=== PATIENT | male | born 2000 | race Caucasian/White ===

== ENCOUNTER 2020-04-11 18:27 | Emergency (ER) | payer MEDICAID, SELFPAY ==
[2020-04-11 18:35] VITALS: BP 143/79; PULSE 83; RESP 18; TEMP 36.7; O2SAT 99; BMI 25.8
[2020-04-11 18:45] VITALS: BP 143/79; PULSE 83; RESP 18; TEMP 36.6; O2SAT 99; BMI 25.9
--- NOTE | 2020-04-11 18:49 | XR_ITS ---
PROCEDURE: XR HAND RT MIN 3V CLINICAL INDICATION: INJURY Posttraumatic pain COMPARISON: No exams were available for comparison FINDINGS: There is radial angulation of the distal aspect of the 5th metacarpal with some cortical thickening consistent with an old fracture. No acute fracture or dislocation is evident. Other findings:None. IMPRESSION: Old 5th metacarpal fracture, no acute finding Dictated by: Ken Khan MD 04/11/2020 20:49 Electronically signed by Ken Khan MD in [place] 04/11/2020 20:49
--- NOTE | 2020-04-11 18:51 | PC.NURSE ---
NOTIFIED RAD OF HAND XRAY
--- NOTE | 2020-04-11 18:54 | HMH.EDUTC ---
[facility] [place] Impression: Right hand pain Injury of right hand Qualifiers: Encounter type: sequela Qualified Code(s): S69.91XS - Unspecified injury of right wrist, hand and finger(s), sequela Disposition: Home, Self-Care Condition on Discharge: Good Instructions: DI for Hand Pain Additional Instructions: Rest the extremity, apply ice for 15 minutes as tolerated three or four times per day, Elevate the extremity as tolerated while you are resting. Take ibuprofen for pain. Follow up with Dr. Dunlap. I put in a referral but you need to call his office and schedule an appointment. Follow up with your regular doctor. GO TO THE ER FOR ANY WORSENING SYMPTOMS Referrals: Provider,Maxine, [Primary Care Provider] - Fly Dunlap MD [Staff Physician] - Forms: Work/School Release Time of Disposition: 19:58 Medical Decision Making - Medical Records Medical records reviewed: No: I reviewed the patient's medical records. - Jimy Inquiry Pt receiving controlled substance: No Vital Signs: 04/11/20 18:35 04/11/20 18:45 Temperature 98.0 F 98 F Temperature Source Oral Oral Pulse Rate [Left Radial] 83 83 Respiratory Rate 18 18 Blood Pressure [Left Arm] 143/79 H 143/79 H Blood Pressure Mean [Left Arm] 100 100 Blood Pressure Source [Left Arm] Automatic Cuff Automatic Cuff Blood Pressure Position [Left Arm] Sitting Sitting 02 Sat by Pulse Oximetry 99 99 Oxygen Delivery Method Room Air Room Air Orders (Tests/Meds): ORDERS Category Date Time Status XR hand RT min 3V Stat Exams 04/11/20 18:49 Taken - Radiology Data #1 Image(s): Hand Image Reviewed: Yes I reviewed the patient's radiology image Preliminary Findings: No Fracture Seen Medical Decision Narrative: I called and discussed the x-ray with Dr. Dunlap (orthopedics). It was felt by Dr. Dunlap that there is probably an old healed fracture, but go ahead and splint the hand and refer him to orthopedics. [facility] [place] - General Stated complaint: AO 04/11 @ 1800 injury to right hand Time Seen by Provider: 04/11/20 18:54 Mode of Arrival: Ambulatory Source of Information: Patient Limitations: No Limitations Description of Symptoms (Recalled from Triage Doc. by RN): PT C/O RT HAND PAIN HEENT Symptoms (Recalled from RN notes): No Resp Symptoms (Recalled from RN notes): No Skin Symptoms (Recalled from RN notes): No MS Symptoms (Recalled from RN notes): Yes (RT HAND INJURY) Functional Status (Recalled from RN notes): N/A - History of Present Illness Provider Complaint: He states that earlier today he got mad and punched a refrigerator. Since then he has had right hand pain. The pain is worse at the base of his 4th and 5th fingers. - Related Data Allergies Allergy/AdvReac Type Severity Reaction Status Date / Time INGREDIENT: NO KNOWN - NO Allergy Unknown Uncoded 11/12/17 15:08 KNOWN DRUG ALLERGY - Worker's Comp Is this a Worker's Comp case?: No [facility] History - Hepatitis A Screen Drug use history?: No High risk sexual behaviors?: No History of sexually transmitted infection?: No Currently employed?: No Childcare worker?: No Do you have indoor plumbing?: Yes Do you have electricity?: Yes Attestation statement:: This patient has been screened for Hepatitis A risk factors. I have reviewed the patient's past medical history: Yes Medical History: Denies:: Diabetes Mellitus Type 1, Diabetes Mellitus Type 2 - Social History Smoking Status: Never smoker Alcohol Intake: never Occupational Status: other ROS Obtained: Yes All systems reviewed & no additional complaints - Constitutional Constitutional: Denies chills, Denies fever(s), Denies poor appetite, Denies malaise - Eyes Eyes: Denies eye discharge - Cardiovascular Cardiovascular: Denies chest pain - Respiratory Respiratory: No chest congestion, No cough - Gastrointestinal Gastrointestingal: Denies: nausea, vomiting - Musculoskeletal Mus
[2020-04-11 20:20] VITALS: BP 143/79; PULSE 83; RESP 18; TEMP 36.6; O2SAT 99
== END 2020-04-11 20:20 | disposition home or self-care (01) ==
PROVIDERS: Emergency Provider Nurse Practitioner Family
DX: S69.91XA Unspecified injury of right wrist, hand and finger(s), initial encounter (principal); W22.8XXA Striking against or struck by other objects, initial encounter
CPT/HCPCS: 29125; 73130; 99203

== ENCOUNTER → 2020-04-20 09:37 | Outpatient (CLI) | payer SELFPAY ==
--- NOTE | 2020-04-20 09:52 | XR_ITS ---
PROCEDURE: XR HAND RT MIN 3V CLINICAL INDICATION: evaluate for RT hand fracture COMPARISON: XR HAND RT MIN 3V from 04/11/2020 FINDINGS: There is an old 5th metacarpal fracture once again noted. No acute fracture or dislocation evident. The joint spaces are well-preserved. No significant degenerative/arthritic changes. No erosive changes evident. Other findings:None. IMPRESSION: No change with no acute finding. Old 5th metacarpal fracture Dictated by: Ken Khan MD 04/20/2020 16:11 Electronically signed by Ken Khan MD in [place] 04/20/2020 16:11
== END ==
PROVIDERS: PCP Internal Medicine Adolescent Medicine; Visit Provider Orthopaedic Surgery
DX: S69.91XA Unspecified injury of right wrist, hand and finger(s), initial encounter (principal)
CPT/HCPCS: 73130

== ENCOUNTER 2020-10-03 09:23 | Emergency (ER) | payer OTHER, SELFPAY ==
[2020-10-03 09:55] VITALS: BP 137/73; PULSE 80; RESP 20; TEMP 36.8; O2SAT 99; BMI 25.8
--- NOTE | 2020-10-03 10:08 | HMH.EDUTC ---
[facility] [place]ression: Conjunctivitis Qualifiers: Conjunctivitis type: unspecified Laterality: right Qualified Code(s): H10.9 - Unspecified conjunctivitis Disposition: Home, Self-Care Condition on Discharge: Good Instructions: Conjunctivitis, DI for Conjunctivitis, Ofloxacin Ophthalmic Additional Instructions: Use drops as prescribed FOllow up immediately with Dr Mayorga at [facility] if any worsening of symptoms or pain Follow up immediately if no improvement with EYE Doctor Return if needed Straight to ER if any life threatening symptoms Wash hands well before and after application of drops Prescriptions: Ofloxacin [Ocuflox 0.3% OPHTH drops 5mL] 2 drops OP QID 5 Days #1 bottle Transmission Status: Pending to [facility] Referrals: PCP,No [Primary Care Provider] - As needed [facility] [Other] Forms: Work/School Release Medical Decision Making - Jimy Inquiry Pt receiving controlled substance: No Jimy was queried for this patient: No Vital Signs: 10/03/20 09:55 Temperature 98.2 F Temperature Source Oral Pulse Rate [Right Brachial] 80 Respiratory Rate 20 Blood Pressure [Right Arm] 137/73 Blood Pressure Mean [Right Arm] 94 Blood Pressure Source [Right Arm] Automatic Cuff Blood Pressure Position [Right Arm] Sitting 02 Sat by Pulse Oximetry 99 Oxygen Delivery Method Room Air Medical Decision Narrative: Discussed eye exam with eye box due to patient reporting that he gets dust in eyes at work and patient declined denies known FB in eye and denies injury [facility] [place] - General Stated complaint: rigt eye pain Time Seen by Provider: 10/03/20 10:08 Mode of Arrival: Ambulatory Source of Information: Patient Limitations: No Limitations Description of Symptoms (Recalled from Triage Doc. by RN): PATIENT C/O RIGHT EYE PAIN AND REDNESS OVER THE WEEKEND. HE REPORTS HE THINKS SOMETHING MAY HAVE GOTTEN IN HIS EYE AT WORK, BUT IS UNSURE WHAT IS WAS. 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 States that he doesnt recall getting anything in his eye and denies feeling of FB but states that for the last couple of days he has been having drainage, redness and mild swelling around his upper lid States that this morning when he woke up it was matted together and he went to work and they sent him here to get checked because they thought he may have [facility] - Related Data Previous Rx's Medication Instructions Recorded Ofloxacin [Ocuflox 0.3% OPHTH 2 drops OP QID 5 Days #1 bottle 10/03/20 drops 5mL] Allergies Allergy/AdvReac Type Severity Reaction Status Date / Time No Known Allergies Allergy Verified 10/03/20 10:05 - Worker's Comp Is this a Worker's Comp case?: No [facility] History - Hepatitis A Screen Drug use history?: No High risk sexual behaviors?: No History of sexually transmitted infection?: No Currently employed?: No Childcare worker?: No Do you have indoor plumbing?: Yes Do you have electricity?: Yes Attestation statement:: This patient has been screened for Hepatitis A risk factors. I have reviewed the patient's past medical history: Yes Medical History: Denies:: Diabetes Mellitus Type 1, Diabetes Mellitus Type 2 Other Surgeries: Yes: No Previous Surgery - Social History Smoking Status: Never smoker Alcohol Intake: never Occupational Status: other Family Hx:: No significant family history ROS Obtained: Yes All systems reviewed & no additional complaints, Yes Systems reviewed as appropriate & no additional complaints - Constitutional Constitutional: Reports system reviewed and no additional complaints, except as docu - Eyes Eyes: Teja
[2020-10-03 10:38] VITALS: BP 137/73; PULSE 80; RESP 20; TEMP 36.8; O2SAT 99
== END 2020-10-03 10:42 | disposition home or self-care (01) ==
PROVIDERS: Emergency Provider Nurse Practitioner
DX: H10.31 Unspecified acute conjunctivitis, right eye (principal)
CPT/HCPCS: 99201

== ENCOUNTER 2021-04-30 03:28 | Emergency (ER) | payer OTHER, SELFPAY ==
[2021-04-30 03:30] VITALS: BP 117/74; PULSE 72; RESP 16; TEMP 36.4; O2SAT 98; BMI 26.6
--- NOTE | 2021-04-30 03:52 | XR_ITS ---
PROCEDURE INFORMATION: Exam: XR Left Hand Exam date and time: 04/30/2021 3:52 AM Age: 20 years old Clinical indication: Injury or trauma; Other: Laceration; Left; Patient HX: Lac to index finger and thumb, best images TECHNIQUE: Imaging protocol: XR Left hand. Views: 3 or more views. COMPARISON: No relevant prior studies available. FINDINGS: Bones/joints: Soft tissue swelling of the index finger is seen without evidence of a radiopaque foreign body. Osseous structures appear intact. Soft tissues: Normal. IMPRESSION: Soft tissue swelling of the index finger is seen without evidence of a radiopaque foreign body. Osseous structures appear intact.
[2021-04-30 04:45] VITALS: BP 110/57; PULSE 52; O2SAT 97
--- NOTE | 2021-04-30 05:35 | HMH.EDPFEV ---
ED Disposition Clinical Impression: Finger laceration Qualifiers: Encounter type: initial encounter Finger: index finger Damage to nail status: unspecified Foreign body presence: without foreign body Laterality: left Qualified Code(s): S61.211A - Laceration without foreign body of left index finger without damage to nail, initial encounter Disposition: Home, Self-Care Condition on Discharge: Good Instructions: DI for Laceration Repair Additional Instructions: sutures out 10-12 days and recheck if any problems Prescriptions: cephALEXin [cephALEXin 500mg capsule*] 500 mg PO TID #30 cap Transmission Status: Pending to [facility] Referrals: Provider,Referral, [Primary Care Provider] - - Critical Care Critical Care Time: No Attestation: On 04/30/21, the high probability of a clinically significant, sudden or life threatening deterioration of the following system(s) required my full and direct attention, intervention and personal management. The time I documented below is in addition to time spent performing reported procedures but includes the following listed in this critical care notation. Medical Decision Making - Medical Records Medical records reviewed: Yes: I reviewed the patient's medical records. - Jimy Inquiry Pt receiving controlled substance: No Vital Signs: 04/30/21 03:30 04/30/21 04:45 Temperature 97.6 F Temperature Source Oral Pulse Rate 52 L Pulse Rate [Right Radial] 72 Respiratory Rate 16 Blood Pressure 110/57 L Blood Pressure [Right Arm] 117/74 Blood Pressure Mean [Right Arm] 88 Blood Pressure Source [Right Arm] Automatic Cuff Blood Pressure Position [Right Arm] Supine 02 Sat by Pulse Oximetry 98 97 Oxygen Delivery Method Room Air Orders (Tests/Meds): ED MEDICATIONS Discontinued Medications Generic Name Dose Route Start Last Admin Trade Name Freq PRN Reason Stop Dose Admin Tetanus/Reduced Diphtheria/Acell Pertussis 0.5 ml 04/30/21 03:53 04/30/21 04:06 Tet/Diphth/Pert-Adult 0.5ml Syringe IM 04/30/21 03:54 0.5 ml .ONCE ONE Administration - Radiology Data #1 Image(s): Hand Image Reviewed: Yes I reviewed the patient's radiology image Preliminary Findings: No Fracture Seen Pediatric Fever HPI - General Chief Complaint: Wound/Laceration Stated Complaint: AO 04/30/21 0230 laceration left hand Time Seen by Provider: 04/30/21 04:00 Mode of Arrival: Ambulatory Source of Information: Patient, Relative, Medical Record Limitations: No Limitations Description of Symptoms (Recalled from ER Triage Doc. by RN): Pt reports lac to left hand on glass when he was trying to break a tobacco stick on the ground. Pt has small lacs to left thumb and left index finger. - History of Present Illness HPI narrative: lac lt hand tonight - no def hx 0f how - pt intox - but able to move finger and no other injury noted MD complaint: other (lac lt index finger ) Onset (ago): hour(s) Hydration status: tolerating fluids Activity level at home: normal Treatments prior to arrival: none - Related Data Immunizations UTD: no Previous Rx's Medication Instructions Recorded cephALEXin [cephALEXin 500mg 500 mg PO TID #30 cap 04/30/21 capsule*] Allergies Allergy/AdvReac Type Severity Reaction Status Date / Time No Known Allergies Allergy Verified 10/03/20 10:05 Pediatric Past Medical History - Past Medical History Source: obtained from family ROS Obtained: Yes All systems reviewed & no additional complaints - Constitutional Constitutional: Denies fever(s) - Eyes Eyes: Denies change in vision - ENT Ears, Nose, Mouth, and Throat: Denies sore throat - Cardiovascular Cardiovascular: Denies chest pain - Gastrointestinal Gastrointestingal: Denies: abdominal pain - Genitourinary Male Genitourinary: Denies hematuria - Musculoskeletal Musculoskeletal: Denies joint pain - Integumentary/Breasts Skin/Breast: Reports as per
[2021-04-30 05:50] VITALS: BP 114/78; PULSE 88; RESP 20; TEMP 36.6; O2SAT 98
== END 2021-04-30 05:52 | disposition home or self-care (01) ==
PROVIDERS: Emergency Provider Emergency Medicine
DX: S61.211A Laceration without foreign body of left index finger without damage to nail, initial encounter (principal); W25.XXXA Contact with sharp glass, initial encounter; Y92.009 Unspecified place in unspecified non-institutional (private) residence as the place of occurrence of the external cause; Z23 Encounter for immunization
CPT/HCPCS: 12001; 73130; 90471; 90715; 99282

== ENCOUNTER 2021-05-01 08:15 | Emergency (ER) | payer OTHER, SELFPAY ==
[2021-05-01 08:16] VITALS: BP 126/75; PULSE 85; RESP 16; TEMP 36.7; O2SAT 98; BMI 25.8
--- NOTE | 2021-05-01 08:39 | XR_ITS ---
PROCEDURE: XR ELBOW LT MIN 3V CLINICAL INDICATION: Possible FB COMPARISON: No exams were available for comparison FINDINGS: No fracture or dislocation. No lytic or blastic change. There is normal mineralization. The joint spaces are well-preserved. No significant degenerative/arthritic changes. No erosive changes evident. Other findings:No radiopaque foreign body apparent IMPRESSION: No acute findings. Dictated by: Ken Khan MD 05/01/2021 09:46 Ken Khan MD in [place] 05/01/2021 09:46
--- NOTE | 2021-05-01 08:49 | HMH.EDSKAF ---
ED Disposition Clinical Impression: Abscess of arm, left, Cellulitis of left upper extremity Disposition: Home, Self-Care Condition on Discharge: Good Instructions: Cellulitis Prescriptions: Sulfamethoxazole/Trimethoprim [Bactrim DS tablet] 1 each PO BID 10 Days #20 tab Transmission Status: Pending to [facility] cephALEXin [Cephalexin 500mg Tab] 500 mg PO QID 10 Days #40 tab Transmission Status: Pending to [facility] Referrals: Provider,Referral, [Primary Care Provider] - - Critical Care Critical Care Time: No Attestation: On 05/01/21, the high probability of a clinically significant, sudden or life threatening deterioration of the following system(s) required my full and direct attention, intervention and personal management. The time I documented below is in addition to time spent performing reported procedures but includes the following listed in this critical care notation. Medical Decision Making - Medical Records Medical records reviewed: Yes: I reviewed the patient's medical records. - Jimy Inquiry Pt receiving controlled substance: No Vital Signs: 05/01/21 08:16 Temperature 98.1 F Temperature Source Oral Pulse Rate [Left] 85 Respiratory Rate 16 Blood Pressure [Right Arm] 126/75 Blood Pressure Mean [Right Arm] 92 Blood Pressure Source [Right Arm] Automatic Cuff 02 Sat by Pulse Oximetry 98 Oxygen Delivery Method Room Air Orders (Tests/Meds): ED MEDICATIONS Discontinued Medications Generic Name Dose Route Start Last Admin Trade Name Ivánq PRN Reason Stop Dose Admin Ceftriaxone Sodium 1 gm 05/01/21 08:39 05/01/21 09:12 Ceftriaxone 1gm Vial IM 05/01/21 08:40 1 gm ONCE ONE Administration Protocol Ibuprofen 800 mg 05/01/21 08:39 05/01/21 08:53 Ibuprofen 400 Mg Tablet PO 05/01/21 08:40 800 mg ONCE ONE Administration Lidocaine HCl 0 ml 05/01/21 08:39 Lidocaine 1% 5ml Pf Vial IM 05/01/21 08:40 ONCE ONE ORDERS Category Date Time Status Elbow XR left mininum 3 views [XR elbow LT min 3V] Stat Exams 05/01/21 08:39 Taken - Radiology Data #1 Image(s): Elbow Image Reviewed: Yes I reviewed the patient's radiology results, Yes I reviewed the patient's radiology image No obvious fracture or dislocation. No radiopaque foreign body. - Reevaluation(s) Time: 09:23 Reevaluation #1: On reevaluation, patient is feeling much better. Patient be discharged with short course antibiotics. He is to follow-up with PCP or return the emergency department for repeat wound evaluation in 48 hours. Given strict return precautions. Verbalized understanding. Medical Decision Narrative: 20-year-old male presented to the emergency department with an abscess in the left elbow. The patient has been self traumatizing it in order to express purulent material. Patient is afebrile. No evidence of sepsis. Patient be given first dose of antibiotics in the emergency department. X-ray will be obtained for foreign body. Skin/Abscess/FB HPI - General Chief complaint: Skin/Abscess/Foreign Body Stated complaint: redness and pain on Lt arm Time Seen by Provider: 05/01/21 08:20 Mode of Arrival: Ambulatory Limitations: No Limitations Description of Symptoms (Recalled from ER Triage Doc. by RN): patient with scab to left elbow that has become infected with cellulitis up arm. patient complains of left armpit tenderness. - History of Present Illness HPI narrative: 20-year-old male presented to the emergency department with some left elbow pain and swelling. The patient states that he has had a small abscess in the area for the last 5 days or so. Patient states that he has been squeezing it and relieving some purulent material. He states that yesterday started noticing some redness streaking up his arm. It was painful in nature. Patient states that it goes from his armpit down to his elbow. He denies any direct trauma. Patient denies an
[2021-05-01 09:25] VITALS: BP 134/83; PULSE 85; RESP 20; O2SAT 99
[2021-05-01 09:36] VITALS: BP 138/80; PULSE 84; RESP 16; TEMP 36.7; O2SAT 100
== END 2021-05-01 09:41 | disposition home or self-care (01) ==
PROVIDERS: Emergency Provider Emergency Medicine
DX: L02.414 Cutaneous abscess of left upper limb (principal)
CPT/HCPCS: 73080; 96372; 99282

== ENCOUNTER 2021-10-17 10:43 | Emergency (ER) | payer OTHER, SELFPAY ==
[2021-10-17 11:51] VITALS: BP 124/69; PULSE 89; RESP 19; TEMP 36.8; O2SAT 99; BMI 20.7
--- NOTE | 2021-10-17 12:17 | HMH.EDUTC ---
[facility] [place] Clinical Impression: Strep throat Disposition: Home, Self-Care Condition on Discharge: Good Instructions: DI for COVID-19 (Suspected or Confirmed ), Preventing the Spread of Coronavirus Discharge Instructions, DI for Fever (Symptom) -- Adult, DI for Strep Throat, Strep Throat Additional Instructions: *Monitor Temp, Over the counter Motrin or Tylenol as directed/as needed Tylenol every 4 hours and Motrin every 6 hours (as long as your family doctor has told you that you can take it) for fever or pain. and straight to ER if unable to lower temp less than 101.0 after medication given *Warm salt water gargles may help to soothe the throat *Throat Lozenges *Warm fluids like tea with honey may help to soothe the throat *Sleep elevated *Humidifier/Vaporizer *Flonase 2 sprays in each nostril daily but be aware that it may take 2-3 days before you notice improvement *Bromfed may cause drowsiness. Know how it effects you (your child) before driving, caring for small child, or sending your child to school. Not other antihistamines/allergy medications while taking bromfed Your throat swab was sent for culture. Those results are typically sent to your primary care. Be sure to follow up in 2-3 days with your family doctor/primary care physician if no improvement so they can review those result and treat if necessary. If you don?t have a primary care doctor, I recommend you get one but in the mean time, you will have to return to a walk in clinic Follow up IMMEDIATELY for new or worsening symptoms or no Noticeable improvement over the next 48-72 hours. 911 for difficulty breathing or swallowing You were tested for today for COVID19 your test result should be back in the next 24-48 hours, you may check your results on the [facility] My Health Portal you was given a handout on how to access the portal if you have issues there is a number you can call to get it You was given a handout with instructions for Self Quarantine and Self isolation for while you wait on test results and what to do if they are positive If you are positive the Health Dept will be contacting you also Make sure to take your Vitamins Vit. C Vit D and Zinc if you can take them Prescriptions: methylPREDNISolone [Medrol 4mg tab] 4 mg PO DIRECTED #21 tab Transmission Status: Pending to [facility] Cefdinir [Omnicef 300mg Capsule] 300 mg PO BID #20 cap Transmission Status: [facility] to [facility] Referrals: Provider,Referral, [Primary Care Provider] - Forms: Work/School Release Time of Disposition: 12:27 Medical Decision Making - Jimy Inquiry Pt receiving controlled substance: No Jimy was queried for this patient: No Vital Signs: 10/17/21 11:51 Temperature 98.3 F Temperature Source Oral Pulse Rate [Left] 89 Respiratory Rate 19 Blood Pressure [Right Arm] 124/69 Blood Pressure Mean [Right Arm] 87 02 Sat by Pulse Oximetry 99 - Lab Data Lab results reviewed: Yes: I reviewed the patient's lab results. Orders (Tests/Meds): ORDERS Category Date Time Status Covid-19 Nasal PCR ([facility]) Routine Lab 10/17/21 11:46 Received [facility] [place] HPI - General Stated complaint: covid symptoms Time Seen by Provider: 10/17/21 12:17 Mode of Arrival: Ambulatory Source of Information: Patient Limitations: No Limitations Description of Symptoms (Recalled from Triage Doc. by RN): pt c/o fever, chills, body aches, cough, LOPEZ, and sore throat. ongoing since yesterday. HEENT Symptoms (Recalled from RN notes): Yes (sore throat and LOPEZ) Resp Symptoms (Recalled from RN notes): Yes (cough) Skin Symptoms (Recalled from RN notes): No MS Symptoms (Recalled from RN notes): No Functional Status (Recalled from RN notes): wnl - History of Present Illness Provider Complaint: Patient states that he started feeling bad yesterday and it came on suddenly States that he has been having sore throat, sinus congestion and pressure, headache, fever chills and
[2021-10-17 12:30] LABS: UTC Strep Screen (Rapid) Positive (Negative)
[2021-10-17 12:45] VITALS: BP 124/69; PULSE 89; RESP 19; TEMP 36.8
== END 2021-10-17 12:46 | disposition home or self-care (01) ==
PROVIDERS: Emergency Provider Nurse Practitioner
DX: U07.1 COVID-19 (principal); J02.0 Streptococcal pharyngitis
CPT/HCPCS: 87880; 99203; C9803; G0463; U0003; U0005

== ENCOUNTER 2022-06-19 09:03 | Emergency (ER) | payer BC, OTHER, SELFPAY ==
[2022-06-19 09:04] VITALS: BP 123/71; PULSE 64; RESP 18; TEMP 36.9; O2SAT 100; BMI 21.9
[2022-06-19 09:15] VITALS: BP 115/62; BP 115/67; BP 124/84; PULSE 65; PULSE 76; PULSE 78
--- NOTE | 2022-06-19 09:16 | HMH.EDWEAK ---
ED Disposition Clinical Impression: General weakness, Abdominal discomfort Disposition: Home, Self-Care Condition on Discharge: Good Instructions: DI for Abdominal Pain-Adult, DI for Muscle Weakness Additional Instructions: follow up PCP call for appt, return here for worse Referrals: Provider,MD Maxine [Primary Care Provider] - Dilan Allen MD [Staff Physician] - - Critical Care Critical Care Time: No Attestation: On 06/19/22, the high probability of a clinically significant, sudden or life threatening deterioration of the following system(s) required my full and direct attention, intervention and personal management. The time I documented below is in addition to time spent performing reported procedures but includes the following listed in this critical care notation. Medical Decision Making - Medical Records Medical records reviewed: Yes: I reviewed the patient's medical records. - Jimy Inquiry Pt receiving controlled substance: No Vital Signs: 06/19/22 09:04 06/19/22 09:15 Temperature 98.4 F Temperature Source Oral Pulse Rate [Left Radial] 64 Pulse Rate [Orthostatic Lying Left Radial] 65 Pulse Rate [Orthostatic Sitting Left Radial] 76 Pulse Rate [Orthostatic Standing Left Radial] 78 Respiratory Rate 18 Blood Pressure [Orthostatic Lying Right Arm] 115/67 Blood Pressure [Orthostatic Sitting Right Arm] 115/62 Blood Pressure [Orthostatic Standing Right Arm] 124/84 Blood Pressure [Right Arm] 123/71 Blood Pressure Mean [Right Arm] 88 Blood Pressure Source [Right Arm] Automatic Cuff Blood Pressure Position [Right Arm] Sitting 02 Sat by Pulse Oximetry 100 Oxygen Delivery Method Room Air - Lab Data Lab Results 06/19/22 09:10: SARS-CoV-2 (PCR) Not detected, Influenza A Untype (PCR) Not detected, Influenza Type B (PCR) Not detected 06/19/22 09:25: WBC 5.5, RBC 4.78, Hgb 15.4, Hct 43.2, MCV 90.2, MCH 32.2 H, MCHC 35.6 H, RDW 13.6, Plt Count 296, MPV 7.6, Neut % (Auto) 63.8, Lymph % (Auto) 27.9, [place] % (Auto) 4.8, Eos % (Auto) 2.3, Baso % (Auto) 1.2, Neut # (Auto) 3.5, Lymph # (Auto) 1.5, [place] # (Auto) 0.3, Eos # (Auto) 0.1, Baso # (Auto) 0.1 06/19/22 09:25: Sodium 138, Potassium 4.0, Chloride 109 H, Carbon Dioxide 21 L, Anion Gap 12.0, BUN 11, Creatinine 0.80, Estimated Creat Clear 131, Estimated GFR 122, Est GFR ( Amer) 148, Glucose 88, Calcium 10.2, Total Bilirubin 0.2, AST 34, ALT 28, Alkaline Phosphatase 83, Total Protein 7.6, Albumin 4.7, Globulin 2.9, Albumin/Globulin Ratio 1.6 06/19/22 09:25: Troponin I < 0.01 Result diagrams: 06/19/22 09:25 06/19/22 09:25 Orders (Tests/Meds): ORDERS Category Date Time Status ECG Request by /[place] [facility] Y 06/19/22 09:15 Ordered - ECG Data Tracing #1 I reviewed this ECG and interpreted as documented below: ekg by sinus 55, qrs nml,, non spec st/t changes - Reevaluation(s) Time: 10:03 (reeval, appears well, vss, no cp/soa, says he feels better, ok with plan to f/u PCP and return for worse) Weakness HPI - General Chief complaint: Weakness Stated complaint: weakness, nataliekey Time Seen by Provider: 06/19/22 09:16 Mode of Arrival: Ambulatory Limitations: No Limitations Description of Symptoms (Recalled from ER Triage Doc. 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
[2022-06-19 09:18] LABS: Coronavirus 19, PCR Not Detected (NotDetected); Influenza A, PCR Not Detected (NotDetected); Influenza B, PCR Not Detected (NotDetected)
--- NOTE | 2022-06-19 09:32 | ECG_ITS ---
APPROVED REPORT Exam: Resting ECG HR:55 bpm ECG Measurements Heart Rate 55 AXES IL 165 P 37 QRSd 90 QRS 90 QT 389 T 62 QTc 378 Conclusion SINUS BRADYCARDIA BORDERLINE ECG UNCONFIRMED REPORT Electronically signed by : Miguel Brown MD 06/19/2022 21:09:09
[2022-06-19 09:36] LABS: Basophils # 0.1 K/mm3 (0-0.2); Basophils % 1.2 % (0.1-2.0); Eosinophils # 0.1 K/mm3 (0.0-0.4); Eosinophils % 2.3 % (0.1-12.0); Hematocrit 43.2 % (42.0-52.0); Hemoglobin 15.4 g/dL (14.1-18.0); Lymphocytes # 1.5 K/mm3 (0.7-4.5); Lymphocytes % 27.9 % (10-50); Mean Corpuscular HGB Conc 35.6 g/dL (31.8-35.4); Mean Corpuscular Hemoglobin 32.2 pg (27.0-31.2); Mean Corpuscular Volume 90.2 fl (80-94); Mean Platelet Volume 7.6 fl (7.4-10.4); Monocytes # 0.3 K/mm3 (0.1-1.0); Monocytes % 4.8 % (1.7-9.3); Neutrophils # 3.5 K/mm3 (1.8-7.8); Neutrophils % 63.8 % (37.0-80.0); Platelet Count 296 K/mm3 (142-424); Red Blood Count 4.78 M/mm3 (4.60-6.20); Red Cell Distribution Width 13.6 % (11.5-17.5); White Blood Count 5.5 K/mm3 (4.8-10.8)
[2022-06-19 09:43] LABS: Alanine Aminotransferase 28 U/L (12-78); Albumin Level 4.7 g/dl (3.5-5.0); Albumin/Globulin Ratio 1.6 (1.1-1.8); Alkaline Phosphatase 83 U/L (38-126); Aspartate Amino Transferase 34 U/L (17-59); Bilirubin,Total 0.2 mg/dl (0.2-1.3); Blood Urea Nitrogen 11 mg/dl (9-20); Calcium 10.2 mg/dl (8.4-10.2); Carbon Dioxide 21 mmol/L (22.0-30.0); Chloride 109 mmol/L (98-107); Creatinine Clearance Estimated 131 mL/min (50-200); Estimated Glomerular Filt Rate 122 ml/min (>60); GFR (African American) 148 ML/MIN (>60); Globulin 2.9 g/dL (1.3-3.2); Glucose 88 mg/dl (74-100); Sodium 138 mmol/L (136-145); Total Protein,Serum 7.6 g/dl (6.3-8.2)
[2022-06-19 09:59] LABS: Troponin I < 0.01 ng/ml (0.00-0.034)
--- NOTE | 2022-06-19 10:02 | PC.NURSE ---
ED MD AT BEDSIDE TO REEVALUATE
[2022-06-19 10:16] VITALS: BP 108/60; PULSE 65; RESP 17; TEMP 36.7; O2SAT 99
[2022-06-20 07:17] LABS: POC Glucose,Bedside 103 (70-110)
== END 2022-06-19 10:17 | disposition home or self-care (01) ==
PROVIDERS: Emergency Provider Emergency Medicine
DX: R42 Dizziness and giddiness (principal); R53.1 Weakness; R10.9 Unspecified abdominal pain; R25.8 Other abnormal involuntary movements; F41.0 Panic disorder [episodic paroxysmal anxiety]; Z79.52 Long term (current) use of systemic steroids; Z20.822 Contact with and (suspected) exposure to COVID-19
CPT/HCPCS: 80053; 82962; 84484; 85025; 93005; 99284; C9803; U0003; U0005

== ENCOUNTER → 2022-11-13 13:50 | Outpatient (POV) | payer BC, OTHER, SELFPAY | PROVIDERS: Visit Provider Dermatology | DX: Z00.00 Encounter for general adult medical examination without abnormal findings (principal) ==

== ENCOUNTER 2023-04-22 12:32 | Emergency (ER) | payer BC, OTHER, SELFPAY ==
[2023-04-22 12:33] VITALS: BP 129/79; PULSE 87; RESP 16; TEMP 36.7; O2SAT 99; BMI 22.7
--- NOTE | 2023-04-22 12:55 | XR_ITS ---
PROCEDURE INFORMATION: Exam: XR Left Foot Exam date and time: 04/22/2023 1:56 PM Age: 22 years old Clinical indication: Pain; Lower leg; Left TECHNIQUE: Imaging protocol: Radiologic exam of the left foot. Views: 3 or more views. COMPARISON: No relevant prior studies available. FINDINGS: Bones/joints: There is no evidence of acute fracture.There is no evidence of malalignment or dislocation. Soft tissues: Normal. IMPRESSION: There is no evidence of acute fracture.There is no evidence of malalignment or dislocation.
--- NOTE | 2023-04-22 12:55 | XR_ITS ---
PROCEDURE INFORMATION: Exam: XR Left Ankle Exam date and time: 04/22/2023 1:56 PM Age: 22 years old Clinical indication: Injury or trauma; Fall; Blunt trauma; Lower leg; Left; Additional info: Pain TECHNIQUE: Imaging protocol: Radiologic exam of the left ankle. Views: 3 or more views. COMPARISON: No relevant prior studies available. FINDINGS: Bones/joints: There is no evidence of acute fracture.There is no evidence of malalignment or dislocation. Soft tissues: Normal. IMPRESSION: There is no evidence of acute fracture.There is no evidence of malalignment or dislocation.
--- NOTE | 2023-04-22 12:55 | XR_ITS ---
PROCEDURE INFORMATION: Exam: XR Left Tibia and Fibula Exam date and time: 04/22/2023 1:56 PM Age: 22 years old Clinical indication: Injury or trauma; Fall; Blunt trauma; Lower leg; Left; Additional info: Pain TECHNIQUE: Imaging protocol: Radiologic exam of the left tibia and fibula. Views: 2 views. COMPARISON: No relevant prior studies available. FINDINGS: Bones/joints: There is no evidence of acute fracture.There is no evidence of malalignment or dislocation. Soft tissues: Normal. IMPRESSION: There is no evidence of acute fracture.There is no evidence of malalignment or dislocation.
--- NOTE | 2023-04-22 13:29 | EXP.UTC ---
Discharge Plan Disposition Patient Disposition: Home, Self-Care Condition: Good Prescriptions Prescriptions: No Action No Known Home Medications Referrals Follow up/Referrals: Al Baird DO [Staff Physician] - See instructions Miguel Brown MD [Primary Care Provider] - See instructions Activity Restrictions/Add. Instructions Additional Instructions/Restrictions: Rest the extremity, Elevate the extremity as tolerated while you are resting. Take ibuprofen for pain. Follow up with Dr. Baird (orthopedics). I put in a referral but you need to call his office and schedule an appointment. Follow up with your regular doctor. GO TO THE ER FOR ANY WORSENING SYMPTOMS Clinical Impressions Clinical Impression: Contusion of leg, left, Leg pain, left Stand Alone Forms Stand Alone Forms: Work/School Release Instructions Patient Instructions: How to Use Crutches, DI for Leg Pain Discharge ED Provider: Angel Mccarthy [facility] General Stated complaint: AO04/[id number]@home, pain in Lt leg Mode of Arrival: Wheelchair Limitations: No Limitations Time Seen by Provider: 04/22/23 13:28 History of Present Illness Provider Complaint: Pt c/o LLE pain, pt reports he was working on a car he was using a lot of force to turn lug nuts states the lug nut broke loose and he fell over onto his leg and felt a pop. Related Data Home Medications Medication Instructions Recorded Confirmed No Known Home Medications 04/22/23 04/22/23 Allergies Allergy/AdvReac Type Severity Reaction Status Date / Time No Known Allergies Allergy Verified 04/22/23 13:33 [facility] Disclaimer: The information contained in this section may have been updated after the patient was seen, as this information can be updated by other users. Medical History (Updated 04/22/23 @ 14:32 by Angel Mccarthy APRN) No significant past medical history Surgical History (Updated 04/22/23 @ 13:33 by Asia Buchanan RN) No significant past surgical history Family History (Updated 04/22/23 @ 13:33 by Asia Buchanan RN) Other No significant family history Social History (Updated 04/22/23 @ 13:33 by Asia Buchanan RN) Smoking Status: Never smoker alcohol intake: never current occupational status: other Travel in the last 8 weeks: None ROS Obtained: Yes All systems reviewed & no additional complaints except as documented Constitutional Constitutional: Denies chills and Denies fever(s) Eyes Eyes: Denies eye discharge ENT Ears, Nose, Mouth, and Throat: Denies dizziness, Denies otalgia and Denies sore throat Cardiovascular Cardiovascular: Denies chest pain Respiratory Respiratory: Denies shortness of breath, Denies chest congestion, Denies cough, Denies stridor and Denies wheezing Gastrointestinal Gastrointestingal: Denies nausea or vomiting Musculoskeletal Musculoskeletal: Reports as per HPI Integumentary/Breasts Skin/Breast: Denies rash Neurologic Neurologic: Denies dizziness and Denies paresthesias Allergic/Immunologic Allergic/Immunologic: Denies wheezing Physical Exam General General appearance: alert and in no apparent distress Head Head exam: atraumatic, normocephalic and normal inspection Eye Eye exam: Present normal appearance, PERRL and EOMI ENT ENT exam: Present normal exam, normal oropharynx, mucous membranes moist, TM's normal bilaterally and normal external ear exam Neck Neck exam: Present normal inspection, full ROM and trachea midline; Absent meningismus or lymphadenopathy Chest Chest inspection: Present normal inspection and symmetric chest wall rise; Absent tenderness Respiratory Respiratory exam: Present normal lung sounds bilaterally; Absent respiratory distress Cardiovascular Cardiovascular exam: Present regular rate and normal rhythm; Absent JVD Abdominal Exam Abdominal exam: Present soft and normal bowel sounds; Absent distention, tenderness or guarding Extremities Exam Extremities exam: P
[2023-04-22 13:36] VITALS: BP 129/79; PULSE 87; RESP 18; TEMP 36.7; O2SAT 99; BMI 22.7
[2023-04-22 14:34] VITALS: BP 129/79; PULSE 87; RESP 16; TEMP 36.7; O2SAT 99
== END 2023-04-22 14:43 | disposition home or self-care (01) ==
PROVIDERS: Emergency Provider Nurse Practitioner Family; PCP Internal Medicine Adolescent Medicine
DX: M79.605 Pain in left leg (principal); S80.12XA Contusion of left lower leg, initial encounter; X50.9XXA Other and unspecified overexertion or strenuous movements or postures, initial encounter
CPT/HCPCS: 73590; 73610; 73630; 99212; 99214; G0463

== ENCOUNTER 2023-08-11 16:59 | Emergency (ER) | payer BC, OTHER, SELFPAY ==
[2023-08-11 17:00] VITALS: BP 129/75; PULSE 88; RESP 18; TEMP 36.9; O2SAT 99; BMI 22.8
--- NOTE | 2023-08-11 17:14 | EXP.UTC ---
Discharge Plan Disposition Patient Disposition: Home, Self-Care Condition: Good Prescriptions Prescriptions: No Action No Known Home Medications Referrals Follow up/Referrals: Miguel Brown MD [Primary Care Provider] - See instructions Activity Restrictions/Add. Instructions Additional Instructions/Restrictions: *Monitor Temp, Over the counter Motrin or Tylenol as directed/as needed Tylenol every 4 hours and Motrin every 6 hours (as long as your family doctor has told you that you can take it) for fever or pain. and straight to ER if unable to lower temp less than 101.0 after medication given *Warm salt water gargles may help to soothe the throat *Throat Lozenges? *Warm fluids like tea with honey may help to soothe the throat? *Sleep elevated *Humidifier/Vaporizer *Flonase 2 sprays in each nostril daily but be aware that it may take 2-3 days before you notice improvement *Bromfed may cause drowsiness. Know how it effects you (your child) before driving, caring for small child, or sending your child to school. Not other antihistamines/allergy medications while taking bromfed Your throat swab was sent for culture. Those results are typically sent to your primary care. Be sure to follow up in 2-3 days with your family doctor/primary care physician if no improvement so they can review those result and treat if necessary. If you don?t have a primary care doctor, I recommend you get one but in the mean time, you will have to return to a walk in clinic Follow up IMMEDIATELY for new or worsening symptoms or no Noticeable improvement over the next 48-72 hours. 911 for difficulty breathing or swallowing You were tested for today for COVID19 your test result should be back in the next 24 hours You may check your results on the [facility] [employer] [facility] for your results Clinical Impressions Clinical Impression: Viral syndrome Instructions Patient Instructions: DI for Viral Syndrome, DI for Fever (Symptom) -- Adult Discharge ED Provider: Spring Hopson [facility] [place] HPI General Stated complaint: pos covid at home, weak, nausea Mode of Arrival: Ambulatory Source of Information: Patient Limitations: No Limitations Time Seen by Provider: 08/11/23 17:14 Description of Symptoms (Recalled from Triage Doc. by RN): Pt stated that he took an at home covid test and it was positive. He stated that he has body aches, sore throat, weak, diarrhea HEENT Symptoms (Recalled from RN notes): Yes Resp Symptoms (Recalled from RN notes): No Skin Symptoms (Recalled from RN notes): No MS Symptoms (Recalled from RN notes): No Functional Status (Recalled from RN notes): n/a History of Present Illness Provider Complaint: Patient states that he woke up not feeling well States that he has been feeling achy all over, fever, chills, body aches, and diarrhea State that he took a home COVID test and it was positive so he came in to get checked here Wanting to get tested for COVID and flu Related Data Home Medications Medication Instructions Recorded Confirmed No Known Home Medications 04/22/23 04/22/23 Allergies Allergy/AdvReac Type Severity Reaction Status Date / Time No Known Allergies Allergy Verified 08/11/23 17:14 Worker's Comp Is this a Worker's Comp case?: No [facility] Disclaimer: The information contained in this section may have been updated after the patient was seen, as this information can be updated by other users. Medical History (Updated 08/11/23 @ 17:19 by Spring Hopson APRN) No significant past medical history Surgical History No significant past surgical history Family History Other No significant family history Social History Smoking Status: Never smoker alcohol intake: never current occupational status: o
[2023-08-11 17:35] LABS: UTC Influenza A Antigen Negative (Negative); UTC Influenza B Antigen Negative (Negative)
[2023-08-11 17:53] VITALS: BP 129/75; PULSE 88; RESP 18; TEMP 37; O2SAT 99
== END 2023-08-11 17:54 | disposition home or self-care (01) ==
PROVIDERS: Emergency Provider Nurse Practitioner; PCP Internal Medicine Adolescent Medicine
DX: U07.1 COVID-19 (principal); R50.9 Fever, unspecified
CPT/HCPCS: 87635; 87804; 99212; 99213; G0463

== ENCOUNTER 2023-08-27 08:09 | Emergency (ER) | payer BC, OTHER, SELFPAY ==
[2023-08-27 08:10] VITALS: BP 131/74; PULSE 81; RESP 18; TEMP 36.8; O2SAT 100; BMI 23.5
--- NOTE | 2023-08-27 08:40 | EXP.UTC ---
Discharge Plan Disposition Patient Disposition: Home, Self-Care Condition: Good Prescriptions Prescriptions: New ibuprofen [IBU] 800 mg tablet 800 mg PO Q8HP PRN (Reason: Moderate Pain) Qty: 30 0RF Referrals Follow up/Referrals: Miguel Brown MD [Primary Care Provider] - See instructions Activity Restrictions/Add. Instructions Additional Instructions/Restrictions: Drink plenty of fluids. Take tylenol or ibuprofen for pain or fever. Take the medications as directed. Follow up with your regular doctor. GO TO THE ER FOR ANY WORSENING SYMPTOMS Clinical Impressions Clinical Impression: Headache Stand Alone Forms Stand Alone Forms: Work/School Release Instructions Patient Instructions: DI for Headache Discharge ED Provider: Angel Mccarthy [facility] [place] General Stated complaint: headache X 5 days Mode of Arrival: Ambulatory Source of Information: Patient Limitations: No Limitations Time Seen by Provider: 08/27/23 08:39 Description of Symptoms (Recalled from Triage Doc. by RN): LOPEZ since saturday. The light hurts his eyes. He cannot get rid of it. HEENT Symptoms (Recalled from RN notes): Yes Resp Symptoms (Recalled from RN notes): No Skin Symptoms (Recalled from RN notes): No MS Symptoms (Recalled from RN notes): No Functional Status (Recalled from RN notes): n/a History of Present Illness Provider Complaint: He states that for the past 5 days he has had a head ache. He has been taking tylenol and ibuprofen. He states that they do help some but the headache returns. He denies that this is the worst headache he's ever had. He denies other symptoms. Related Data Previous Rx's Medication Instructions Recorded ibuprofen 800 mg tablet (IBU) 800 mg PO Q8HP PRN Moderate Pain 08/27/23 #30 tabs Allergies Allergy/AdvReac Type Severity Reaction Status Date / Time No Known Allergies Allergy Verified 08/27/23 08:26 Worker's Comp Is this a Worker's Comp case?: No [facility] Disclaimer: The information contained in this section may have been updated after the patient was seen, as this information can be updated by other users. Medical History (Updated 08/27/23 @ 09:08 by Angel Mccarthy APRN) No significant past medical history Surgical History No significant past surgical history Family History Other No significant family history Social History Smoking Status: Never smoker alcohol intake: never current occupational status: other Travel in the last 8 weeks: None ROS Obtained: Yes All systems reviewed & no additional complaints except as documented Constitutional Constitutional: Denies chills and Denies fever(s) Eyes Eyes: Denies eye discharge ENT Ears, Nose, Mouth, and Throat: Denies dizziness, Denies otalgia and Denies sore throat Cardiovascular Cardiovascular: Denies chest pain Respiratory Respiratory: Denies shortness of breath, Denies chest congestion, Denies cough, Denies stridor and Denies wheezing Gastrointestinal Gastrointestingal: Denies nausea or vomiting Musculoskeletal Musculoskeletal: Reports system reviewed and no additional complaints, except as documented and Denies arthralgias Integumentary/Breasts Skin/Breast: Denies rash Neurologic Neurologic: Reports as per HPI, Denies dizziness and Denies paresthesias Allergic/Immunologic Allergic/Immunologic: Denies wheezing Physical Exam General General appearance: alert and in no apparent distress Head Head exam: atraumatic, normocephalic and normal inspection Eye Eye exam: Present normal appearance, PERRL and EOMI ENT ENT exam: Present normal exam, normal oropharynx, mucous membranes moist, TM's normal bilaterally and normal external ear exam Neck Neck exam: Present normal inspection, full ROM and trachea midline; Absent meningismus or lymphadenopathy Chest
[2023-08-27 09:19] VITALS: BP 131/74; PULSE 81; RESP 18; TEMP 36.8; O2SAT 100
== END 2023-08-27 09:19 | disposition home or self-care (01) ==
PROVIDERS: Emergency Provider Nurse Practitioner Family; PCP Internal Medicine Adolescent Medicine
DX: R51.9 Headache, unspecified (principal)
CPT/HCPCS: 96372; 99212; 99214; G0463